=== PATIENT | female | born 1955 | race Caucasian/White ===

== ENCOUNTER 2020-12-13 09:52 | Outpatient (CLI) | payer OTHER, SELFPAY | END 2020-12-13 09:53 | disposition home or self-care (01) | DX: H92.01 Otalgia, right ear (principal) | CPT/HCPCS: 92557; 92567 ==

== ENCOUNTER 2020-12-27 09:48 | Outpatient (RCR) | payer OTHER, SELFPAY | END 2021-03-27 23:59 | disposition home or self-care (01) | LOC: ANHBWCAUD 09:48 | DX: Z46.1 Encounter for fitting and adjustment of hearing aid (principal) | CPT/HCPCS: V5160; V5261 ==